=== PATIENT | male | born 1955 | race Caucasian/White ===

== ENCOUNTER 2024-01-24 12:09 | Outpatient (RCR) | payer MEDICARE, SELFPAY | END 2024-03-05 10:04 | disposition home or self-care (01) | PROVIDERS: PCP Family Medicine; Visit Provider Family Medicine | DX: R29.6 Repeated falls (principal); Z51.89 Encounter for other specified aftercare | CPT/HCPCS: 97165; 97535 ==

== ENCOUNTER 2024-04-22 09:20 | Outpatient (CLI) | payer MEDICARE, SELFPAY | END 2024-04-22 09:21 | disposition home or self-care (01) | LOC: NFLDREF 14:59 | PROVIDERS: PCP Family Medicine; Referring Provider Family Medicine; Visit Provider Family Medicine | DX: I10 Essential (primary) hypertension (principal); E78.5 Hyperlipidemia, unspecified | CPT/HCPCS: 80053; 80061 ==

== ENCOUNTER 2025-04-01 10:28 | Emergency (ER) | payer MEDICARE, SELFPAY ==
--- OUTSIDE RECORDS SUMMARY | 2025-04-01 10:30 | XMS_ITS | Encounter Summary ---
Author Organization [facility] Address [address] [place] [address] Care Team Providers Care Surface Logging Systems Logger Name Role Phone Christine Choi MD Primary Care Provider [phone] Christine Choi MD Unavailable [phone] Cruz Gunter Unavailable [phone] Dc Calabrese MD Primary Care Provider [phone] Dc Calabrese MD Unavailable [phone] Encounter Details Date Type Department Care Team (Late st Contact Info) Description 05/26/[address] 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 No / Unsure 05/25/2023 9:39 AM CDT documented as of this encounter Plan of Treatment Not on file documented as of this encounter Visit Diagnoses Not on filedocumented in this encounter Care Teams Surface Logging Systems Logger Relationship Specialty Start Date End Date Christine Choi MD PCP - General Student in organized health care education/training program 04/17/23 05/30/24 [place] [address] [address] PCP - General Family Medicine 05/31/24 Christine Choi MD [address] [place] [address] Assigned PCP 04/22/23 05/06/24 [place] [address] [place] [address] Assigned PCP 05/07/24 06/06/24 Dc Calabrese MD [address] [address] Assigned PCP 06/07/24 documented as of this encounter
--- OUTSIDE RECORDS SUMMARY | 2025-04-01 10:30 | XMS_ITS | Encounter Summary ---
Author Organization [facility] Address [facility] [place] [address] Care Team Providers Care Coder Operator Name Role Phone Eze Murray MD Primary Care Provider [phone] Gisel Wang DO Primary Care Provider [phone] Janna Medina MD Primary Care Provider [phone] Janna Medina MD Primary Care Provider [phone] Nicole Alvarado MD Primary Care Provider + Rudy Brito MD Primary Care Provider Gilbert Hussein MD Primary Care Provider Stormy Medina DO Primary Care Provider Stormy Rodriguez DO Unavailable [phone] Baldo Lantigua MD Unavailable [phone] Stormy Rodriguez DO Unavailable [phone] Kanchan Cleary DO Primary Care Provider [phone] Kanchan Cleary DO Unavailable [phone] Daphnie Sanchez DO Primary Care Provider [phone] Daphnie Sanchez DO Unavailable [phone] Daphnie Sanchez DO Unavailable [phone] Spenser Choi MD Primary Care Provider [phone] Christine Choi MD Primary Care Provider [phone] Christine Choi MD Unavailable [phone] Cruz Gunter DO Unavailable [phone] Dc Calabrese MD Primary Care Provider [phone] Dc Calabrese MD Unavailable [phone] Encounter Details Date Type Department Care Team (Late st Contact Info) Description 06/05/2012 Office Visit-[facility] INTERFACE [facility] DEPT Eze Murray MD [address] [place] [address] Social History Tobacco Use Types Packs/Day Years Used Date Smoking Tobacco: Never Assessed Sex and Gender Information Value Date Recorded Sex Assigned at Not on file 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 PHQ2 completed and was negative Allergy List reviewed: Current Immunizations reviewed: Up to date Pharmacy and Medication list reviewed with patient and was updated. Allergies No Known Drug Allergy. Smoking Assessment No secondhand cigarette smoke exposure. No tobacco use. Current Meds Multi Vitamin Mens TABS;TAKE 1 TABLET DAILY.; RPT Aspirin 325 MG Tablet;TAKE TABLET 2 tabs bid or tid prn; RPT. Immunizations MMR Varicella Td; 12 Jan 1998 * Influenza; 09 Aug 2007 Tdap (Adacel); 18 Mar 2008 Influenza (Split); 23 Jun 2009 H1N1 Influenza Inj; 05 Oct 2009 Influenza (Split); 20 Aug 2010 Influenza (Split); 01 Aug 2011. Active Problems Closed Trans-scaphoid Fracture Of The Right Wrist With Perilunate Dislocation (814.01) Fracture Of The Humerus (812.20) Hypertension (401.9) Penile Lesion. Family Hx No Family History in Problem List. Vital Signs Recorded by [email or web address] on 05 Jun 2012 10:44 AM BP:183/101, LUE, Sitting, HR: 73 b/min, L Radial, Temp: 98.6 F, Oral, Height: 70.5 in, Weight: 178.8 lb, BMI: 25.3 kg/m2, O2 Sat: 96 (%SpO2). Adult PE HCM Male Concerns today: none See Health History Form for ROS See Health history form for Social,healthy habits and sexual history. PAST MEDICAL HISTORY CAD None DM None Cancer None FAMILY HISTORY : CAD : father DM : mother Cancer : possibly grandfather USPSTF Level A Recommendations Cholesterol Level (>35 y or at risk) : Recommended today ASA use (>3% risk in 5 y) Yes HIV screening (at risk ) : not at risk USPSTF Level B Recommendations Colon CA Screening (>50-75 ) : colonoscopy 2008 for AAA (65-75 yo+ever smoked) : not at this time IMMUNIZATIONS:Reviewed Immunization Record Today EXAMINATION: EXAMINATION: Constitutional: no distress, comfortable, pleasant Vital signs: Reviewed and normal aside from elevated blood pressure Eyes: anicteric, normal extra-ocular movements Ears, Nose and Throat: tympanic membranes clear, nose clear and free of lesions, throat clear, necksupple with full range of motion, no thyromegaly Cardiovascular: regular rate and rhythm, no murmurs, rubs or gallops, peripheral pulses full and symmetric Respiratory: clear to auscultation, no wheezes or crackles, normal breath sounds Gastrointestinal: positive bowel sounds, nontender, no hepatosplenomegaly, no masses Genitourinary: normal testicular exam, penis normal Musculoskeletal: left-sided change secondary to past injury are stable Skin:no concerning lesions, no jaundice Neurological: cranial nerves intact, stable strength and sensation with deficits secondary to past injury, reflexes at patella and biceps normal, stable abnormal gait, uses cane, no tremor Psychological: appropriate mood Lymphatic: no cervical, axillary, or inguinal lymphadenopathy ASSESSMENT: 1) Single episode elevated blood pressure - record daily blood pressures at home - return to clinic in 4 weeks for recheck and to consider pharmacotherapy 2) Healthcare Maintenance:. *Cancer screening - Colon cancer: Colonoscopy Jun 08, 2009 - Prostate cancer: PSA in 2009 wnl, repeat in future - Testicular cancer: physical exam wnl - Skin cancer: physical exam wnl - Oral cancer: physical exam wnl *Cardiovascular Preventative Health - Lipds: check today - Blood pressure: elevated as above - Blood glucose: check fasting glucose today - Aspirin: continue daily aspirin - Exercise: continue daily exercise - Weight: BMI 25, continue to monitor diet . Plan Patient participated in and agrees with today's plan. Attending Note The medical student acted as scribe and the encounter documented above was completely performed by myself. Supervising Physician: Eze Murray M.D. Signature Signed By: Eze Murray M.D.; 06/07/2012 9:47 AM GRAIN FARMWORKER. N FARMWORKER documented in this encounter Plan of Treatment Not on file documented as of this encounter Visit Diagnoses Not on filedocumented in this encounter Care Teams Coder Operator Relationship Specialty Start Date End Date Eze Murray MD [address] [place] [address] PCP - General Emergency Medicine 06/09/12 10/04/12 Gisel Wang DO [address] [place] [address] PCP - General 10/05/12 03/03/14 Janna Medina MD [facility] [address] [place] [address] PCP - General 03/04/14 04/13/14 Janna Medina MD [facility] [address] [facility] [address] [place] [address] PCP - General 04/14/14 04/07/16 Nicole Alvarado MD [facility] [address] [facility] [address] [place] [address] PCP - General Student in organized health care education/training program 04/14/16 04/18/18 Rudy Brito MD [facility] [address] [facility] [address] [place] [address] PCP - General Student in organized health care education/training program 04/08/16 04/13/16 Gilbert Martinez MD [facility] [address] [facility] [address] [place] [address] PCP - General Student in organized health care education/training program 04/19/18 10/15/19 Stormy Rodriguez DO [address] [place] [address], [address] [place] [address] PCP - General Student in organized health care education/training program 10/16/19 04/14/21 Kanchan Cleary DO [address] [place] [address] PCP - General Student in organized health care education/training program 04/15/21 09/19/21 Daphnie Sanchez DO [facility] [address] [place] [address] PCP - General Family Medicine 09/20/21 04/13/23 Spenser Choi MD [address] [facility] [address] [place] [address] PCP - General Family Medicine 04/14/23 04/16/23 Christine Choi MD [address] [facility] [address] [place] [address] PCP - General Student in organized health care education/training program 04/17/23 05/30/24 Dc Calabrese MD [address] [address] PCP - General Family Medicine 05/31/24 Stormy Rodriguez DO [address] [address] Assigned PCP 03/05/20 01/23/21 Baldo Lantigua MD [address] [place] [address] Assigned PCP 03/11/21 03/20/21 Stormy Rodriguez DO [address] [address] Assigned PCP 03/21/21 04/17/21 Kanchan Cleary DO [address] [address] Assigned PCP 04/18/21 09/25/21 Daphnie Sanchez DO [address] [address] Assigned PCP 10/10/21 04/21/23 Daphnie Sanchez DO [address] [place] [address] Assigned PCP 09/26/21 10/09/21 Christine Choi MD [address] [place] [address] Assigned PCP 04/22/23 05/06/24 Cruz Gunter DO [address] [facility] [address] [place] [address] Assigned PCP 05/07/24 06/06/24 Dc Calabrese MD [address] [facility] [address] [place] [address] Assigned PCP 06/07/24 documented as of this encounter
--- OUTSIDE RECORDS SUMMARY | 2025-04-01 10:30 | XMS_ITS | Clinical Summary ---
Author Organization [place] Address [address] [facility] [place] [address] Care Team Providers Care Chronometer Adjuster Name Role Phone Dc Calabrese MD Primary Care Provider [phone] Dc Calabrese MD Unavailable [phone] Allergies No known active allergies Medications Multiple Vitamins-Minerals (EYE VITAMINS PO) Take 1 capsule by mouth 2 times daily Active lisinopril (ZESTRIL) 20 MG tabletIndications :Benign essential hypertension Take 1 tablet (20 mg) by mouth daily 90 tablet 3 3 Active Active Problems Problem Noted Date Diagnosed Date Falls frequently 04/17/2023 Impaired gait and mobility 04/17/2023 Major neurocognitive disorde r, due to traumatic brain injury, without behavioral disturbance, moderate 04/17/[address] 04/02/2013 Overview (04/02/2013): Older brother Reiiner Dodge and mother Grace Norton CARDIOVASCULAR SCREENING; LDL GOAL LESS THAN 160 04/02/2013 Benign essential hypertension 07/10/2012 Resolved Problems Problem Noted Date Diagnosed Date Resolved Date Major neurocognitive disorde r due to traumatic brain injury without behavioral disturbance 04/02/2013 04/17/2023 Overview (05/09/2013): 08/18/1980 Tree-trimming accident, lives alone and independent with ADLs Immunizations Immunization Administration Dates Next Due COVID-19 12+ (Pfizer) 07/25/2023 COVID-19 Bivalent 12+ (Pfizer) 04/17/2023 COVID-19 MONOVALENT 12+ (Pfizer) 07/19/2021,04/0 12/2020,12/26/2020 COVID-19 Monovalent 12+ (Pfizer 2021) 06/03/2022 Flu, Unspecified 08/20/2010,06/23/2009, 8 Influenza (H1N1) 10/05/2009 Influenza (High Dose) Trival ent,PF (Fluzone) 08/15/2019,07/05/2018 Influenza (IIV3) PF 07/06/2017, 4,07/10/2012,2010,08/09/2007 Influenza Vaccine 65+ (Fluzone HD) 07/14,08/04/2022,07/19/2021,2019 Influenza Vaccine >6 months,quad, PF 07/06/2017, 07/30/2016 Influenza, Whole Virus 11/12/2002,10/05/2000 Pneumo Conj 13-V (2010&after) 12/20/2018 Pneumococcal 23 valent 09/23/2021 TDAP Vaccine (Boostrix) 12/20/2018,12/20/2018, Td (Adult), Adsorbed 01/12/1998 Zoster recombinant adjuvante d (Shingrix) 07/23/2018,07/05/2018 Family History Medical History Relation Comments Chronic Obstructive Pulmonary Disease Father Cancer Maternal Grandmother Diabetes Mother Diabetes Sister 2 Relation Status Comments Brother 1 Alive Brother 2 Alive Father Maternal Grandmother Mother Alive Sister 1 Alive Sister 2 Social History Tobacco Use Types Packs/Day Years Used Date Smoking Tobacco: Former Cigarettes 1 12 0 10/16/1967 - 10/16/1979 Smokeless Tobacco: Never Alcohol Use Standard Drinks/Week Comments No 0 (1 standard drink = 0.6 oz pur e alcohol) Quit 1999 PHQ-2 Answer Date Recorded PHQ-2 Score 0 04/17/2023 Adolescent Education Answer Date Record ed Getting School Help Needed Not on file 07/15 Sex and Gender Information Value Date Recorded Sex Assigned at Not on file 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 Gender Identity Not on file Sexual Orientation Not on file Occupation Industry Job Start Date Job End Date Not on file Not on file Not on file Not on file Not on file Not on file Not on file Not on file Last Filed Vital Signs Vital Sign Reading Time Taken Comments Blood Pressure 131/86 04/17/2023 11:34 AM CDT Pulse 83 04/17/2023 11:30 AM CDT Temperature 37.3 C (99.2 F) 06/03/2022 1:38 PM CDT Respiratory Rate 18 04/17/2023 11:30 AM CDT Oxygen Saturation 96% 04/17/2023 11:30 AM CDT Inhaled Oxygen Concentration - - Weight 69.2 kg (152 lb 9.6 oz) 04/17/2023 11:30 AM CDT Height 175.3 cm (5' 9) 04/17/2023 11:30 AM CDT Body Mass Index 22.54 04/17/2023 11:30 AM CDT Plan of Treatment Health Maintenance Due Date Last Done Comments ANNUAL REVIEW OF HM ORDERS 1955 CT COLONOGRAPHY 1955 FIT 1955 FLEX SIG 1955 sDNA (Cologuard) 1955 LUNG CANCER SCREENING 2003 ZOSTER VACCINE (2 of 2) 09/17/2018 07/23/2018, 07/05 BMP 06/03/2023 06/03/2022, 0405/2022, 10/07/2021, Additional history exists LIPID 12/21/2023 12/20/2018, 09/0 12/2014, 04/08/2014, Additional history exists FALL RISK ASSESSMENT 04/17/2024 04/17/2023, 01/03/2022, 12/25/2021, Additional history exists COVID-19 VACCINE ( season) 2024 04/09/2024, 07/25/2023, 04/17/2023, Additional history exists PHQ-2 (once per calendar year) 2024 04/17/2023, 06/03/2022, 05/04/2022, Additional history exists MEDICARE ANNUAL WELLNESS VISIT 04/23/2025 04/23/2024, 04/23/2024, 04/23/2024, Additional history exists DIABETES SCREENING 06/03/2025 06/03/2022, 0 01/31/2022, 10/07/2021, Additional history exists INFLUENZA VACCINE (Season Ended) 2025 07/14/2023, 08/04/2022, 07/19/2021, Additional history exists ADVANCE CARE PLANNING 12/31/2026 12/31/2021 , 09/21/2019, 08/20/2019, Additional history exists RSV VACCINE (1 - 1-dose 75+ series) 2028 DTAP/TDAP/TD VACCINE (4 - Td or Tdap) 12/20/2028 12/20/2018, 12/20/2018, 03/18/2008, Additional history exists COLONOSCOPY 03/10/2029 03/10/2022, 02/14, 06/24/2014, Additional history exists COLORECTAL CANCER SCREENING 03/10/2029 PNEUMOCOCCAL VACCINE 50+ YEARS Completed 09/23/2021, 12/20/2018 HEPATITIS C SCREENING Completed 01/31/2022 HPV VACCINE Aged Out No longer eligi ble based on patient's age to complete this topic MENINGITIS VACCINE Aged Out No longer eligible based on patient's age to complete this topic Procedures Procedure Name Priority Date/Time Associated Diagnosis Comments BASIC METABOLIC PANEL Routine 06/03/2022 2:14 PM CDT Benign essential hypertension COLONOSCOPY Routine 03/10/2022 12:49 PM CDT HEPATITIS C SCREEN REFLEX TO HCV RNA QUANT AND GENOTYPE Routine 01/31/2022 1:21 PM CDT Screening for condition LIPID PANEL (LABDAQ) Routine 12/20/2018 3:06 PM CST Medicare annual wellness visit, initial from Last 3 Months or Most Recently Relevant to Health Maintenance Results * (ABNORMAL) Basic metabolic panel (06/03/2022 2:14 PM CDT) Creatinine 0.64(L) 0.67 - 1.17 mg/dL 06/03/2022 9:28 PM CDT [facility] Sodium 140 136 - 145 mmol/L 06/03/2022 9:28 PM CDT [facility] Potassium 4.7 3.4 - 5.3 mmol/L 06/03/2022 9:28 PM CDT [facility] Urea Nitrogen 16.1 8.0 - 23.0 mg/dL 06/03/2022 9:28 PM CDT [facility] Chloride 103 98 - 107 mmol/L 06/03/2022 9:28 PM CDT [facility] Carbon Dioxide (CO2) 27 22 - 29 mmol/L 06/03/2022 9:28 PM CDT [facility] Anion Gap 10 7 - 15 mmol/L 06/03/2022 9:28 PM CDT [facility] Glucose 116(H) 70 - 99 mg/dL 06/03/2022 9:28 PM CDT [facility] GFR Estimate >90 >60 mL/min/1.7 3m2 06/03/2022 9:28 PM CDT [facility] Comment:Effective September 162020 eGFRcr in adults is calculated using the 2020 CKD-EPI creatinine equation which includes age and gender (Carly et al., NEJM, DOI: 10.1056/MNEWfo0725070) Calcium 9.8 8.8 - 10.2 mg/dL 06/03/2022 9:28 PM CDT [facility] Blood BLOOD SPECIMEN / Unknown Venipuncture / Unknown 06/03/2022 2:14 PM CDT 06/03/2022 2:14 PM CDT us Stormy Funes DO LAB - BLOOD ORDERABLES Final Res ult [facility] [place] [facility] [address] [facility] [address], [address] [place] [address], [place] [phone] * COLONOSCOPY (03/10/2022 12:49 PM CDT) [facility]OS[facility] [address] [place] [address] [phone] Endoscopy Department Patient Name: Patrick Dodge Procedure Date: 03/10/2022 12:49 PM Date of : 1955 Admit Type: Outpatient Age: 66 Room: [facility] Gender: Male Note Status: Finalized Attending MD: FANNIE SIMPSON MD Pause for the Cause: Pause for the cause completed. Total Sedation Time: Procedure: Colonoscopy Indications: Surveillance: Personal history of adenomatous polyps on last colonoscopy > 5 years ago Providers: FANNIE SIMPSON MD, Sara Page RN, Jac Brito Patient Profile: This is a 66 year old male. Refer to note in patient chart for documentation of history and physical. Referring MD: STORMY FUNES Medicines: Propofol per Anesthesia Complications: No immediate complications. Estimated blood loss: Minimal. Procedure: Pre-Anesthesia Assessment: - Prior to the procedure, a History and Physical was performed, and patient medications and allergies were reviewed. The patient is competent. The risks and benefits of the procedure and the sedation options and risks were discussed with the patient. All questions were answered and informed consent was obtained. Patient identification and proposed procedure were verified by the physician and the nurse in the pre-procedure area. Mental Status Examination: alert and oriented. Airway Examination: normal oropharyngeal airway and neck mobility. Respiratory Examination: clear to auscultation. CV Examination: normal. Prophylactic Antibiotics: The patient does not require prophylactic antibiotics. Prior Anticoagulants: The patient has taken no anticoagulant or antiplatelet agents. ASA Grade Assessment: II - A patient with mild systemic disease. After reviewing the risks and benefits, the patient was deemed in satisfactory condition to undergo the procedure. The anesthesia plan was to use monitored anesthesia care (MAC). Immediately prior to administration of medications, the patient was re-assessed for adequacy to receive sedatives. The heart rate, respiratory rate, oxygen saturations, blood pressure, adequacy of pulmonary ventilation, and response to care were monitored throughout the procedure. The physical status of the patient was re-assessed after the procedure. After obtaining informed consent, the colonoscope was passed under direct vision. Throughout the procedure, the patient's blood pressure, pulse, and oxygen saturations were monitored continuously. The Colonoscope was introduced through the anus and advanced to the cecum, identified by appendiceal orifice and ileocecal valve. The colonoscopy was performed without difficulty. The patient tolerated the procedure well. The quality of the bowel preparation was evaluated using the BBPS ([place] Bowel Preparation Scale) with scores of: Right Colon = 3, Transverse Colon = 3 and Left Colon = 3 (entire mucosa seen well with no residual staining, small fragments of stool or opaque liquid). The total BBPS score equals 9. Findings: The perianal and digital rectal examinations were normal. Two sessile polyps were found in the sigmoid colon. The polyps were 1 to 2 mm in size. These polyps were removed with a jumbo cold forceps. Resection and retrieval were complete. Many small and large-mouthed diverticula were found in the recto-sigmoid colon, descending colon and ascending colon. The exam was otherwise without abnormality on direct and retroflexion views. Impression: - Two 1 to 2 mm polyps in the sigmoid colon, removed with a jumbo cold forceps. Resected and retrieved. - Diverticulosis in the recto-sigmoid colon, in the descending colon and in the ascending colon. - The examination was otherwise normal on direct and retroflexion views. Recommendation: - Discharge patient to home (with escort). - Resume previous diet. - Continue present medications. - Await pathology results. - Repeat colonoscopy in 7-10 years for surveillance based on pathology results. - Return to primary care physician as previously scheduled. Electronically Signed by: Dr. Fannie Simpson FANNIE SIMPSON MD 03/10/2022 2:43:35 PM I was physically present for the entire viewing portion of the exam. Signature of teaching physician FANNIE SIMPSON MD Number of Addenda: 0 Note Initiated On: 03/10/2022 12:49 PM Scope In: Scope Out: RADIOLOGY RESULTS 03/10/2022 12:4 9 PM CDT Stormy Funes DO PROCEDURES Final Result RADIOLOGY RESULTS * Hepatitis C Screen Reflex to HCV RNA Quant and Genotype (01/31/2022 1:21 PM CDT) Pathologist [facility] Hepatitis C Antibody Nonreactive Nonreactive 02/01/2022 9:49 AM CDT SPECIALTY CORE/PROT/EN DO Blood BLOOD SPECIMEN / Unknown Venipuncture / Unknown 01/31/2022 1:21 PM CDT 01/31/2022 1:21 PM CDT Narrative SPECIALTY CORE/PROT/ENDO - 02/01/2022 9:49 AM CDT Assay performance characteristics have not been established for newborns, infants, and children. Stormy Funes DO LAB - BLOOD ORDERABLES Final Res ult [facility] C[facility]/PROT/ENDO [facility]/Prot/Endo [address] [facility], Room [address] [place] [address] * Lipid Panel (LabDAQ) (12/20/2018 3:06 PM WEB CONTENT WRITER) Cholesterol 171.6 0.0 - 200.0 mg/dL [facility] LABDAQ Cholesterol/HDL Ratio 3.0 0.0 - 5.0 [facility] HDL Cholesterol 56.4 >40.0 mg/dL [facility] LDL Cholesterol Calculated 104 0 - 129 mg/dL [facility] Triglycerides 56.1 0.0 - 150.0 mg/dL [facility] VLDL Cholesterol 11.2 7.0 - 32.0 mg/dL [facility] LABDA[facility] Blood specimen (specimen) VENOUS BLOOD / Unknown 12/20/2018 3:06 PM WEB CONTENT WRITER 12/20/2018 3:06 PM WEB CONTENT WRITER Yohan Howard MD LAB - LABDAQ Final Re sult [facility] [address] [place] [address] from Last 3 Months or Most Recently Relevant to Health Maintenance Insurance [facility] MEDICARE Advance Directives For more information, please contact: [phone] Documents on File Type Date Recorded 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
--- OUTSIDE RECORDS SUMMARY | 2025-04-01 10:30 | XMS_ITS | Encounter Summary ---
Author Organization [place] Address [address] [address]. [place] [address] Care Team Providers Care Reimbursement Specialist Name Role Phone Daphnie Sanchez DO Primary Care Provider [phone] Daphnie Sanchez DO Unavailable [phone] Spenser Choi MD Primary Care Provider [phone] Christine Choi MD Primary Care Provider [phone] Christine Choi MD Unavailable [phone] Cruz Gunter Susie DO Unavailable [phone] Dc Calabrese MD Primary Care Provider [phone] Dc Calabrese MD Unavailable [phone] Reason for Visit * Reason Comments Medication Refill lisinopril (ZESTRIL) 20 MG tablet Encounter Details Date Type Department Care Team (Late st Contact Info) Description 01/19/2023 Refill [facility] [address] [place] [phone] Stormy Worley DO [address] [place] [phone] Medication Refill (lisinopril (ZESTRIL) 20 MG tablet) Social History Tobacco Use Types Packs/Day Years Used Date Smoking Tobacco: Former Cigarettes 1 12 0 10/16/1967 - 10/16/1979 Smokeless Tobacco: Never Alcohol Use Standard Drinks/Week Comments No 0 (1 standard drink = 0.6 oz pur e alcohol) Quit 1999 PHQ-2 Answer Date Recorded PHQ-2 Score 0 06/03/2022 Sex and Gender Information Value Date Recorded Sex Assigned at Not on file 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 Gender Identity Not on file Sexual Orientation Not on file Occupation Industry Job Start Date Job End Date Not on file Not on file Not on file Not on file Not on file Not on file Not on file Not on file documented as of this encounter Miscellaneous Notes * Telephone Encounter - Fuad Reynoso MA - 01/20/2023 8:04 AM CDT Request for medication refill: lisinopril (ZESTRIL) 20 MG tablet Providers if patient needs an appointment and you are willing to give a one month supply please refill for one month and send a letter/MyChart using .SMILLIMITEDREFILL .smillimited and route chart to [facility] ROLL UP HELPER (Giving one month refill in non controlled medications is strongly recommendedbefore denial) If refill has been denied, meaning absolutely no refills without visit, please complete the smart phrase .smirxrefuse and route it to the [facility] MED REFILLS pool to inform the patient and the pharmacy. Fuad Reynoso MA documented in this encounter Plan of Treatment Not on file documented as of this encounter Visit Diagnoses Diagnosis Benign essential hypertension Essential hypertension, benign documented in this encounter Care Teams Reimbursement Specialist Relationship Specialty Start Date End Date Daphnie Sanchez DO PCP - General Family Medicine 09/20/21 04/13/23 Spenser Choi MD [address] [place] [id number] PCP - General Family Medicine 04/14/23 04/16/23 Christine Choi MD [address] [facility] [address] [place] [address] PCP - General Student in organized health care education/training program 04/17/23 05/30/24 Dc Calabrese MD [address] [address] PCP - General Family Medicine 05/31/24 Daphnie Sanchez DO Assigned PCP 10/10/21 04/21/23 Christine Choi MD [address] [place] [address] Assigned PCP 04/22/23 05/06/24 [place] [address] [place] [id number] Assigned PCP 05/07/24 06/06/24 Dc Calabrese MD [address] [address] Assigned PCP 06/07/24 documented as of this encounter
[2025-04-01 10:32] VITALS: BP 153/95; PULSE 85; RESP 16; TEMP 36.8; O2SAT 95; BMI 24.3
--- NOTE | 2025-04-01 12:15 | ED_ITS ---
HPI - Extremity Injury (Upper) General Time Seen by Provider: 12:15 Date Seen: 04/01/25 Chief Complaint: Extremity Pain/Injury, Upper Stated Complaint: Left shoulder injury Time Seen by Provider: 04/01/25 12:09 Source: patient and RN notes reviewed Mode of arrival: ambulatory Limitations: no limitations History of Present Illness HPI narrative: This 69-year-old male had a fall yesterday onto wood hum[place], landed on his left side. No loss of consciousness, did not hit his head. 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 He thinks he may have fractured it again, is painful. The notice some bruising. He has been taking aspirin at home for pain. Rates pain 5/10. He denies other injuries, no difficulty breathing. Pain is over the clavicle, noticed a lump there. Family member that is with him is not sure if there is been baseline lump but definitely no one now. Patient feels this lump is new. Having no pain in his legs, no difficulty ambulating. Related Data Previous Rx's ?Medication ?Instructions ?Recorded atorvastatin 10 mg tablet 10 mg PO QPM #90 tabs lisinopril 40 mg tablet 40 mg PO DAILY #90 tabs 07/09 Allergies Allergy/AdvReac Type Severity Reaction Status Date / Time No Known Drug Allergies Allergy Verified 04/01/25 10:41 Review of Systems Status of ROS: Reports: 6 or more systems reviewed and unremarkable except as noted in History and below [facility] Medical History History of seizure ?Z87.898 - Personal history of other specified conditions (ICD-10) History of fracture due to fall ?Z87.81 - Personal history of (healed) traumatic fracture (ICD-10) Surgical History History of brain surgery (1979) ?Z98.890 - Other specified postprocedural states (ICD-10) History of orthopedic surgery ?Z98.890 - Other specified postprocedural states (ICD-10) Family History Mother Diabetes Sister Diabetes Father COPD (chronic obstructive pulmonary disease) Social History What is your current living situation?: I presently have a place to live Problems where you live: no known problems and declined to answer In the past 12 months, utilities in danger of being shut off: no In past 12 months, lack of transportation kept you from medical appts, meetings, work, or getting things needed for daily living: no In the past 12 mos, have been you worried that your food would run out before you had money to buy more?: never true In the past 12 mos, the food you bought just didn't last and you didn't have money to buy more?: never true How often does anyone, including family, friends and others, physically hurt you : never How often does anyone, including family, friends and others, insult or talk down to you: never How often does anyone, including family, friends and others, threaten you with harm: never How often does anyone, including family, friends and others, scream or curse at you: never Exam Const: Vital Signs, click to edit/add: Vital Signs - 24 hr 04/01/25 10:32 Temperature 98.2 F Pulse Rate [Pulse Oximeter] 85 Respiratory Rate 16 Blood Pressure [Ri ght Upper Arm] 153/95 H Pulse Oximetry 95 Jarrod is a 69-year-old male seen in exam room 7, alert, interactive, no apparent stress. 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 Face atraumatic, neck is supple. Able to sit up, lungs clear, good air entry, no wheeze or crackles, no tachypnea, no accessory muscle use. CV regular rate and rhythm, no murmur, normal S1-S2, no S3-S4. He has a large protruding visible lump about mid clavicle, seems quite firm like this is consistent with an old healed clavicle fracture. Medial to that he is bit tender. There is overlying ecchymosis and some yellowing more peripherally like older wound healing. He can shrug his shoulder, do not feel any definite s houlder dislocation. He has no pain throughout the humerus, has full range of motion of this elbow, forearm, wrist, fingers. Normal distal sensation, excellent radial pulse. Abdomen is soft, nontender. He has no complaints with his right arm, neither leg. He denies any tenderness below the clavicle on this anterior chest wall. Documenting provider has reviewed patient's vital signs: yes Course Course ED Course: We will x-ray his clavicle and shoulder. Patient is hemodynamically stable. Concern is for recurrent fracture of this clavicle. I do feel the lump within the clavicle feels quite calcified in there certainly could be an old healed fracture there but does not preclude any new injury. Will also look at the shoulder just to ensure no traumatic change there. Reevaluation(s) Time of Reevaluation #1: 13:06 Reevaluation #1: Reviewed negative x-ray readings per radiologist. Given the traumatic change and upper chest wall trauma, do think we need to confirm with CT imaging. Will do noncontrast CT of his chest to further visualize this left upper chest wall, they are in agreement. Time of Reevaluation #2: 13:50 Reevaluation #2: Have reviewed that there is a clavicle fracture on the chest CT. His brother is not here, will have staff call him to come back. Will review the clavicle fracture. Patient does have a cane at home but was using this when he fell. Think he is probably safer using his walker which he has currently. He does tell me that he can use the walker with the left arm without too much discomfort. When his brother comes back, will talk about this further. I think using the sling on his left arm for comfort can be considered but certainly have concerns that this could increase the risk of falls. We will have him follow up with Orthopedics to ensure appropriate healing. There is no necessary intervention or surgical intervention at this time. The clavicle has had prior fracture and is aware this deformity that is visible right now is from. 2:25 p.m.: Did review with his brother present. Patient will use his walker, we have all decided that sling is likely problematic for increasing risk of falls. Plan to discharge to home at this time. Vital Signs Vital signs: Initial Vital Signs Temperature 98.2 F 04/01/25 10:32 Temperature Source Temporal Artery Scan 04/01/25 10:32 Pulse Rate 85 04/01/25 10:32 Respiratory Rate 16 04/01/25 10:32 Blood Pressure 153/95 H 04/01/25 10:32 Blood Pressure Mean 114 H 04/01/25 10:32 Blood Pressure Position Sitting 04/01/25 10:32 Pulse Oximetry 95 04/01/25 10:32 Vital Signs Temperature 98.2 F 04/01/25 10:32 Pulse Rate 85 04/01/25 10:32 Respiratory Rate 16 04/01/25 10:32 Blood Pressure 153/95 H 04/01/25 10:32 Pulse Oximetry 95 04/01/25 10:32 Temperature 98.2 F 04/01/25 10:32 Pulse Rate 85 04/01/25 10:32 Respiratory Rate 16 04/01/25 10:32 Blood Pressure 153/95 H 04/01/25 10:32 Pulse Oximetry 95 04/01/25 10:32 MDM - Extremity Injury (Upper) Imaging Data XR left shoulder: Attestation: I have reviewed the pertinent imaging results. Radiologist's impression: Patient: [facility] Facility:?[facility] Patient ID:?[id number] Site Patient ID:?[id number]. Site :?1955 Study:?XRay-Extremity Left CLAVICLE 2 VIEWS-04/01/2025 12:42:28 PM Ordering Physician:Sonia Gonzales Final Report: INDICATION: Fall, left shoulder pain COMPARISON: Same-day left shoulder radiographs. TECHNIQUE: Two views left clavicle. FINDINGS: Significant irregularity of the scapula and left clavicle appears to be an old healed fracture deformity. No acute appearing fracture seen. Normal joint alignment. Joint spaces are normal. No focal bone lesions. Normal bone mineralization. Soft tissues are normal. No foreign body. IMPRESSION: Irregularity of the scapula and clavicle appear to be related to old fractures. No acute fracture or dislocation seen in the left clavicle. Dictated by Bouchra Ramos MD @ 04/01/2025 12:49:23 PM (Electronic Signature) XR left clavicle: Attestation: I have reviewed the pertinent imaging results. Radiologist's impression: Patient: [facility] Facility:?[facility] Patient ID:?[id number] Site Patient ID:?[id number]. Site :?1955 Study:?XRay-Extremity Left CLAVICLE 2 VIEWS-04/01/2025 12:42:28 PM Ordering Physician:Sonia Gonzales Final Report: INDICATION: Fall, left shoulder pain COMPARISON: Same-day left shoulder radiographs. TECHNIQUE: Two views left clavicle. FINDINGS: Significant irregularity of the scapula and left clavicle appears to be an old healed fracture deformity. No acute appearing fracture seen. Normal joint alignment. Joint spaces are normal. No focal bone lesions. Normal bone mineralization. Soft tissues are normal. No foreign body. IMPRESSION: Irregularity of the scapula and clavicle appear to be related to old fractures. No acute fracture or dislocation seen in the left clavicle. Dictated by Bouchra Ramos MD @ 04/01/2025 12:49:23 PM (Electronic Signature) CT scan - chest: Attestation: I have reviewed the pertinent imaging results. Radiologist's impression: Patient: JARROD WEBB Facility:?[facility] Patient ID:?[id number] Site Patient ID:?[id number]. Site :?1955 Study:?CT-Chest W/O-04/01/2025 1:24:53 PM Ordering Physician:?Jessi Gonzales Final Report: INDICATION: Left upper chest wall trauma anteriorly. COMPARISON: Same day shoulder and clavicle radiographs TECHNIQUE: CT chest without contrast. Multiplanar axial, coronal, and sagittal reformats are included. MIP images to improve detection of pulmonary nodules are included. Intravenous contrast: None FINDINGS: Airway: There is a round filling defect in the left mainstem bronchus at the james that measures 10 x 9 millimeters. See series 3, image 49. Lungs: There are some bands of atelectasis or scarring in the lung bases. No nodules or masses. No consolidations. Normal appearance of the pulmonary interstitium. Pleura: No pleural effusion. No pneumothorax. Lymph nodes: No thoracic adenopathy. Mediastinum: No pneumomediastinum. No mass. Heart and great vessels: No pericardial effusion. Normal cardiac chamber size. Scattered atherosclerotic plaques. No aortic aneurysm. Normal caliber main pulmonary artery. Chest wall: Normal. No masses. Upper abdomen: There are some low-density liver lesions that are probably cysts but are not well characterized on this exam. Abnormal appearance of the spleen with multiple separate splenic lobules. Probably the sequela of significant prior splenic trauma in the absence of significant congenital heart disease or sinus abnormalities. Bones: There is an acute appearing linear fracture of the left mid clavicle. No displacement. See series 4, image 23. There is underlying abnormality of the lateral left clavicle and scapula that suggest a significant prior trauma. Normal glenohumeral alignment. Normal acromioclavicular alignment. Narrowed distance at the coracoclavicular space appears very related to the more remote trauma. There are not any acute rib fractures. Accessory right 4th and 5th rib articulation. See series 4, image 64. no focal bone lesions. IMPRESSION: Acute nondisplaced left mid clavicle fracture. Please note that all CT scans at this facility use dose modulation, iterative reconstruction, and/or weight-based dosing when appropriate to reduce radiation dose to as low as reasonably achievable. Dictated by Bouchra Ramos MD @ 04/01/2025 1:35:03 PM (Electronic Signature) Discharge Plan Discharge Clinical Impression: Clavicle fracture Qualifiers: Encounter type: initial encounter Clavicle location: shaft Fracture type: closed Fracture alignment: nondisplaced Laterality: left Qualified Code(s): S42.025A - Nondisplaced fracture of shaft of left clavicle, initial encounter for closed fracture Patient Disposition: Home, Self-Care Condition: Stable Instructions: Clavicle Fracture (ED) Additional Instructions: The deformity in the clavicle is very likely present from prior fracture. You do have a new shaft fracture that is nondisplaced. There is no other trauma no alyson to the upper chest wall on CT imaging. Recommend Tylenol 1000 mg 3 times a day scheduled for pain management, can decrease as you feel better. Recommend that you contact the orthopedic office and get scheduled for follow-up, they will give you appropriate time frame follow-up for this injury. They will follow this, re-x-ray and make sure that there was appropriate healing and no complications developing. Phone number is [phone]. Activity Level: Activity as Tolerated Prescriptions: No Action lisinopril 40 mg tablet 40 mg PO DAILY Qty: 90 3RF atorvastatin 10 mg tablet 10 mg PO QPM Qty: 90 3RF Follow Up/Referrals: Spenser Torres MD [Primary Care Provider, Family Practice] Stand Alone Forms: [employer] Info Instructions
--- NOTE | 2025-04-01 12:19 | CRLHL7_ITS ---
For Patients: As a result of the Cures Act, medical imaging exams and procedure reports are released immediately into your electronic medical record. You may view this report before your referring provider. If you have questions, please contact your health care provider. INDICATION: Fall, left shoulder pain COMPARISON: Same-day left shoulder radiographs. TECHNIQUE: Two views left clavicle. FINDINGS: Significant irregularity of the scapula and left clavicle appears to be an old healed fracture deformity. No acute appearing fracture seen. Normal joint alignment. Joint spaces are normal. No focal bone lesions. Normal bone mineralization. Soft tissues are normal. No foreign body. IMPRESSION: Irregularity of the scapula and clavicle appear to be related to old fractures. No acute fracture or dislocation seen in the left clavicle. Dictated by Bouchra Ramos MD @ 04/01/2025 12:49:23 PM (Electronically Signed)
--- NOTE | 2025-04-01 12:19 | CRLHL7_ITS ---
For Patients: As a result of the Cures Act, medical imaging exams and procedure reports are released immediately into your electronic medical record. You may view this report before your referring provider. If you have questions, please contact your health care provider. INDICATION: Fall, left shoulder pain COMPARISON: Same-day left clavicle radiographs. TECHNIQUE: Three views left shoulder. FINDINGS: Significant irregularity of the scapula and left clavicle appears to be an old healed fracture deformity. No acute appearing fracture seen. Normal joint alignment. Joint spaces are normal. No focal bone lesions. Normal bone mineralization. Soft tissues are normal. No foreign body. IMPRESSION: Irregularity of the scapula and clavicle appear to be related to old fractures. No acute fracture or dislocation seen in the left shoulder. Dictated by Bouchra Ramos MD @ 04/01/2025 12:48:33 PM (Electronically Signed)
--- NOTE | 2025-04-01 13:05 | CRLHL7_ITS ---
For Patients: As a result of the Century Cures Act, medical imaging exams and procedure reports are released immediately into your electronic medical record. You may view this report before your referring provider. If you have questions, please contact your health care provider. INDICATION: Left upper chest wall trauma anteriorly. COMPARISON: Same day shoulder and clavicle radiographs TECHNIQUE: CT chest without contrast. Multiplanar axial, coronal, and sagittal reformats are included. MIP images to improve detection of pulmonary nodules are included. Intravenous contrast: None FINDINGS: Airway: There is a round filling defect in the left mainstem bronchus at the james that measures 10 x 9 millimeters. See series 3, image 49. Lungs: There are some bands of atelectasis or scarring in the lung bases. No nodules or masses. No consolidations. Normal appearance of the pulmonary interstitium. Pleura: No pleural effusion. No pneumothorax. Lymph nodes: No thoracic adenopathy. Mediastinum: No pneumomediastinum. No mass. Heart and great vessels: No pericardial effusion. Normal cardiac chamber size. Scattered atherosclerotic plaques. No aortic aneurysm. Normal caliber main pulmonary artery. Chest wall: Normal. No masses. Upper abdomen: There are some low-density liver lesions that are probably cysts but are not well characterized on this exam. Abnormal appearance of the spleen with multiple separate splenic lobules. Probably the sequela of significant prior splenic trauma in the absence of significant congenital heart disease or sinus abnormalities. Bones: There is an acute appearing linear fracture of the left mid clavicle. No displacement. See series 4, image 23. There is underlying abnormality of the lateral left clavicle and scapula that suggest a significant prior trauma. Normal glenohumeral alignment. Normal acromioclavicular alignment. Narrowed distance at the coracoclavicular space appears very related to the more remote trauma. There are not any acute rib fractures. Accessory right 4th and 5th rib articulation. See series 4, image 64. no focal bone lesions. IMPRESSION: Acute nondisplaced left mid clavicle fracture. Please note that all CT scans at this facility use dose modulation, iterative reconstruction, and/or weight-based dosing when appropriate to reduce radiation dose to as low as reasonably achievable. Dictated by Bouchra Rmaos MD @ 04/01/2025 1:35:03 PM (Electronically Signed)
== END 2025-04-01 14:32 | disposition home or self-care (01) ==
PROVIDERS: Emergency Provider Family Medicine; PCP Family Medicine
DX: S42.002A Fracture of unspecified part of left clavicle, initial encounter for closed fracture (principal); S20.212A Contusion of left front wall of thorax, initial encounter; W18.30XA Fall on same level, unspecified, initial encounter
CPT/HCPCS: 71250; 73000; 73030; 99284

== ENCOUNTER 2025-09-30 07:55 | Outpatient (CLI) | payer MEDICARE, SELFPAY | END 2025-09-30 07:56 | disposition home or self-care (01) | LOC: NFLDREF 10-05 17:03 | PROVIDERS: PCP Family Medicine; Referring Provider Family Medicine; Visit Provider Family Medicine | DX: E78.5 Hyperlipidemia, unspecified (principal) | CPT/HCPCS: 80053; 80061 ==